=== PATIENT | male | born 1945 | race Caucasian/White ===

== ENCOUNTER 2017-02-20 11:51 | Emergency (ER) | payer OTHER, BC ==
[~2017-02-20] VITALS: Ht 172.7 cm; Wt 83.6 kg
[2017-02-20 13:28] LABS: HEMATOCRIT 41.8 % (38.0-50.0); MCHC 33.7 G/DL (30.0-36.0); MEAN PLAT.VOLUME 9.7 uM^3 (9.0-12.4); PLATELET COUNT 329 K/uL (156-360); RBC DIS.WIDTH-CV 11.9 % (11.8-14.6); RBC DIS.WIDTH-SD 41.6 % (39-53)
[2017-02-20 13:37] LABS: CHLORIDE 98 mEq/L (99-109); POTASSIUM 4.8 mEq/L (3.7-5.4); SODIUM 136 mEq/L (136-147)
[2017-02-20 13:38] LABS: GLUCOSE 86 mg/dL (70-99)
[2017-02-20 13:40] LABS: ANION GAP 10 MEQ/L (2-14)
[2017-02-20 13:42] LABS: GFR ESTIMATE (CALCULATED) > 59 mL/min/
[2017-02-20 13:43] LABS: UREA NITROGEN (BUN) 12 mg/dL (9-23)
[2017-02-20 13:48] LABS: TROP-I INTERPRETATION NEGATIVE; TROPONIN-I < 0.01 ng/mL (0.0-0.30)
[2017-02-20 15:46] LABS: TROP-I INTERPRETATION NEGATIVE; TROPONIN-I < 0.01 ng/mL (0.0-0.30)
[2017-02-20 16:13] VITALS: BP 122/79
== END 2017-02-20 16:14 | disposition home or self-care (01) ==
LOC: EME 11:51
PROVIDERS: Nurse Practitioner Family
DX: R07.9 Chest pain, unspecified (principal); E78.5 Hyperlipidemia, unspecified; I10 Essential (primary) hypertension; Z87.891 Personal history of nicotine dependence
CPT/HCPCS: 71020; 80048; 84484; 85027; 93005; 99281; 99285

== ENCOUNTER 2017-02-23 06:58 | Day surgery (SDC) | payer OTHER, BC ==
[~2017-02-23] VITALS: Ht 172.7 cm; Wt 85.0 kg
[2017-02-23] MEDS ORDERED: PERCOCET 10/1 TABLET PO (07:24)
[2017-02-23] MEDS ORDERED: FINASTERIDE5 MG PO (07:25)
[2017-02-23] MEDS ORDERED: CYMBALTA30 MG PO (07:25)
[2017-02-23] MEDS ORDERED: LOTREL 10/41 CAPSULE PO (07:26)
[2017-02-23] MEDS ORDERED: LOPRESSOR100 M1 PO (07:26)
[2017-02-23] MEDS ORDERED: DYAZIDE, MA1 CAPSULE PO (07:26)
[2017-02-23] MEDS ORDERED: MOTRIN800 MG PO (07:27)
[2017-02-23] MEDS ORDERED: FLOMAX0.4 MG PO (07:27)
[2017-02-23] MEDS ORDERED: FLONASE16 G1 BOTH NARES (07:28)
[2017-02-23] MEDS ORDERED: LIPITOR20 MG PO (07:28)
[2017-02-23] MEDS ORDERED: MULTI-DAY VITA1 EACH PO (07:29)
[2017-02-23] MEDS ORDERED: ASCORBIC ACID500 M3 PO (07:29)
[2017-02-23] MEDS ORDERED: COQ-10100 MG PO (07:30)
[2017-02-23] MEDS ORDERED: FISH OIL 1,0001 EAC7 PO (07:30)
[2017-02-23] MEDS ORDERED: TURMERIC500 M2 PO (07:30)
[2017-02-23] MEDS ORDERED: NITROGLYCERIN0.4 MG SL (07:31)
[2017-02-23 12:15] VITALS: BP 142/79
[2017-02-23 15:00] VITALS: BP 158/80
[2017-02-23 19:39] VITALS: BP 133/71
[2017-02-24 00:15] VITALS: BP 113/65
[2017-02-24 05:10] VITALS: BP 157/86
[2017-02-24 05:57] LABS: BASOPHIL COUNT 0.1 K/uL (0-0.1); EOSINOPHIL (%) 5.9 % (0-5); EOSINOPHIL COUNT 0.4 K/uL (0-0.3); HEMATOCRIT 39.4 % (38.0-50.0); IMMATURE GRANULOCYTE (%) 0.5 % (0.0-0.7); INSTRUMENT ABS NEUTROPHIL CT 3.4 K/uL; MCHC 33.8 G/DL (30.0-36.0); MCV 94.9 FL (86-99); MEAN PLAT.VOLUME 9.7 uM^3 (9.0-12.4); MONOCYTE COUNT 0.7 K/uL (0-0.8); NEUTROPHIL (%) 51.5 % (45-76); NEUTROPHIL COUNT 3.4 K/uL (1.8-6.4); PLATELET COUNT 259 K/uL (156-360); RBC DIS.WIDTH-CV 12.2 % (11.8-14.6); RBC DIS.WIDTH-SD 42.3 % (39-53); RED BLOOD COUNT 4.15 M/uL (4.00-5.50); WHITE BLOOD COUNT 6.6 K/uL (4.1-10.2)
[2017-02-24 06:16] LABS: ANION GAP 8 MEQ/L (2-14); CHLORIDE 101 MEQ/L (99-109); GFR ESTIMATE (CALCULATED) > 59 mL/min/; GLUCOSE 94 mg/dL (70-99); SAMPLE HEMOLYSIS CHECK 0; SAMPLE ICTERIC CHECK 0; SAMPLE LIPEMIA CHECK 0; SODIUM 138 MEQ/L (136-147); UREA NITROGEN (BUN) 10 mg/dL (9-23)
[2017-02-24 06:25] LABS: POTASSIUM 3.7 MEQ/L (3.7-5.4)
[2017-02-24 08:59] VITALS: BP 115/69
[2017-02-24 12:32] VITALS: BP 128/81
[2017-02-24] MEDS ORDERED: EFFIENT10 MG PO (13:19)
[2017-02-24] MEDS ORDERED: ATORVASTATIN CA80 MG PO (13:19)
[2017-02-24] MEDS ORDERED: ASPIR-LOW81 MG PO (13:20)
== END 2017-02-24 14:31 | disposition home or self-care (01) ==
LOC: CATH 06:58 → 2SOUTH 10:08 → 4EAST 10:08 → ENRESERV 10:18 → 4EAST 12:06 → ENPENDDIS 02-24 → 4EAST 02-24 14:31
PROVIDERS: Internal Medicine Cardiovascular Disease
PROC: 027034Z Dilation of Coronary Artery, One Artery with Drug-eluting Intraluminal Device, Percutaneous Approach (ICD-10-PCS; principal; 2017-02-23)
PROC: B2151ZZ Fluoroscopy of Left Heart using Low Osmolar Contrast (ICD-10-PCS; principal; 2017-02-23)
PROC: 4A023N7 Measurement of Cardiac Sampling and Pressure, Left Heart, Percutaneous Approach (ICD-10-PCS; principal; 2017-02-23)
PROC: B2111ZZ Fluoroscopy of Multiple Coronary Arteries using Low Osmolar Contrast (ICD-10-PCS; principal; 2017-02-23)
DX: I25.110 Atherosclerotic heart disease of native coronary artery with unstable angina pectoris (principal); I10 Essential (primary) hypertension; E78.5 Hyperlipidemia, unspecified; Z87.891 Personal history of nicotine dependence; N40.0 Benign prostatic hyperplasia without lower urinary tract symptoms; I73.00 Raynaud's syndrome without gangrene; I45.10 Unspecified right bundle-branch block; M48.00 Spinal stenosis, site unspecified; Z79.891 Long term (current) use of opiate analgesic; Z82.49 Family history of ischemic heart disease and other diseases of the circulatory system; Z80.3 Family history of malignant neoplasm of breast
CPT/HCPCS: 80048; 85025; 85347; 93005; C1725; C1769; C1874; C1887; G0378; J1644; J2250; J3010; J3246